=== PATIENT | female | born 1995 | race Caucasian/White ===

== ENCOUNTER 2017-02-02 22:15 | Emergency (ER) | payer OTHER ==
[~2017-02-02] VITALS: Ht 165.1 cm; Wt 59.1 kg
[2017-02-02 22:21] VITALS: BP 133/85; TEMP 98.7
[2017-02-02] MEDS ORDERED: ZOLOFT 25MG25 MG PO (22:24)
[2017-02-02] MEDS ORDERED: VYVANSE60 MG PO (22:24)
[2017-02-02] MEDS ORDERED: AMOXICILLIN 8751 TAB PO (23:19)
[2017-02-03 00:14] VITALS: PULSE 81
== END 2017-02-03 00:17 | disposition home or self-care (01) ==
LOC: COL.ER 22:15
DX: S62.633A Displaced fracture of distal phalanx of left middle finger, initial encounter for closed fracture (principal); S51.832A Puncture wound without foreign body of left forearm, initial encounter; W54.0XXA Bitten by dog, initial encounter; Y92.009 Unspecified place in unspecified non-institutional (private) residence as the place of occurrence of the external cause